=== PATIENT | female | born 1980 | race Caucasian/White ===

== ENCOUNTER 2018-05-17 18:04 | Emergency (ER) | payer OTHER ==
[~2018-05-17] VITALS: Ht 162.6 cm; Wt 88.5 kg
[~2018-05-17 18:04] MED LIST: BACTRIM DS TAB1 EACH PO; FLAGYL 250 MG250 MG PO; NORCO 5-325 TA1 EACH PO; ZOFRAN ODT4 MG PO
[2018-05-17] MEDS ORDERED: FLONASE 0.05%50 MCG NASAL (18:28)
[2018-05-17] MEDS ORDERED: CLARITIN10 MG PO (18:28)
[2018-05-17 19:29] LABS: URINE BILIRUBIN NEGATIVE (Negative); URINE BLOOD 1+ (Negative); URINE CLARITY CLEAR; URINE COLOR YELLOW; URINE GLUCOSE-RANDOM NEGATIVE (Negative); URINE KETONES NEGATIVE (Negative); URINE LEUKOCYTES NEGATIVE (Negative); URINE NITRITE NEGATIVE (Negative); URINE PROTEIN NEGATIVE (Negative); URINE SPECIFIC GRAVITY 1.015 (1.005-1.030); URINE UROBILINOGEN 0.2 E.U./dl (0.2-1.0)
[2018-05-17 19:33] LABS: ABSOLUTE BASOPHILS 0.1 thou/uL (0.0-0.2); ABSOLUTE EOSINOPHILS 0.2 thou/uL (0.0-0.7); ABSOLUTE LYMPHOCYTES 2.7 thou/uL (0.8-5.3); ABSOLUTE MONOCYTES 0.6 thou/uL (0.0-1.2); ABSOLUTE NEUTROPHILS 5.3 thou/uL (1.6-8.1); EOSINOPHILS 1.9 %; HEMATOCRIT 42.1 % (37.0-47.0); HEMOGLOBIN 14.3 gm/dL (12.0-15.0); LYMPHOCYTES 30.4 %; MCH 30.4 pg (26.0-34.0); MCHC 34.1 g/dL (28.0-37.0); MCV 89.1 fL (80.0-100.0); MONOCYTES 7.3 %; MPV 7.9 fl. (7.2-11.1); NUCLEATED RBCS 0 /100WBC; PLATELET COUNT* 410 thou/uL (150-400); POLYS 59.4 %; RBC 4.72 mil/uL (4.20-5.00); RDW-CV 12.6 % (10.5-14.5); WBC 8.9 thou/uL (4.0-11.0)
[2018-05-17 19:40] LABS: SQUAMOUS >10 Many /LPF (0-3)
[2018-05-17 19:41] LABS: BACTERIA None Seen /HPF (None Seen); CASTS None Seen /LPF (None Seen); CRYSTALS None Seen /LPF (None Seen); URINE RBC 0-2 Rare /HPF (0-2); URINE WBC None Seen /HPF (0-5)
[2018-05-17 19:49] LABS: CALCIUM 9.5 mg/dL (8.5-10.1); CREATININE 0.9 mg/dL (0.6-1.3); POTASSIUM 3.7 mmol/L (3.5-5.1)
[2018-05-17 19:53] LABS: ALBUMIN 4.3 g/dL (3.4-5.0); TOTAL BILIRUBIN 0.2 mg/dL (<0.1-1.0); TOTAL PROTEIN 7.9 g/dL (6.4-8.2)
[2018-05-17] MEDS ORDERED: NABUMETONE 750750 M1 PO (22:17)
[2018-05-17] MEDS ORDERED: NORCO 5-325 TA1 EACH PO (22:17)
[2018-05-17] MEDS ORDERED: ONDANSETRON HCL4 M2 PO (22:52)
[2018-05-17 22:59] VITALS: BP 117/54
== END 2018-05-17 23:00 | disposition home or self-care (01) ==
LOC: M.ERS 18:04
PROVIDERS: Nurse Practitioner Family
DX: N83.201 Unspecified ovarian cyst, right side (principal); K62.5 Hemorrhage of anus and rectum; R42 Dizziness and giddiness; E78.00 Pure hypercholesterolemia, unspecified; Z98.890 Other specified postprocedural states

== ENCOUNTER 2020-04-23 13:06 | Emergency (ER) | payer OTHER ==
[~2020-04-23] VITALS: Ht 162.6 cm; Wt 92.5 kg
[~2020-04-23 13:06] MED LIST changes: +CLARITIN10 MG PO; +FLONASE 0.05%50 MCG NASAL; +NABUMETONE 750750 M1 PO; +ONDANSETRON HCL4 M2 PO
[2020-04-23] MEDS ORDERED: ZYRTEC10 M2 PO (13:28)
[2020-04-23] MEDS ORDERED: FLEXERIL PO (14:54)
[2020-04-23] MEDS ORDERED: IBUPROFEN 800800 M1 PO (14:54)
[2020-04-23] MEDS ORDERED: ONDANSETRON ODT4 MG PO (14:59)
[2020-04-23 15:08] VITALS: BP 125/70
== END 2020-04-23 15:08 | disposition home or self-care (01) ==
LOC: M.ERS 13:06
DX: S16.1XXA Strain of muscle, fascia and tendon at neck level, initial encounter (principal); S00.83XA Contusion of other part of head, initial encounter; M25.561 Pain in right knee; E78.00 Pure hypercholesterolemia, unspecified; Z98.51 Tubal ligation status; W01.0XXA Fall on same level from slipping, tripping and stumbling without subsequent striking against object, initial encounter; Y93.89 Activity, other specified; Y92.090 Kitchen in other non-institutional residence as the place of occurrence of the external cause; Y99.8 Other external cause status